=== PATIENT | male | born 1950 | race Two or more races ===

== ENCOUNTER 2019-03-04 20:06 | Emergency (ER) | payer MEDICARE, OTHER ==
[~2019-03-04] VITALS: Ht 170.2 cm; Wt 96.6 kg
[2019-03-04 21:11] LABS: BASOPHILS % (AUTO) 0.6 % (0.0-2.0); EOSINOPHILS % (AUTO) 1.4 % (0.0-6.0); HEMATOCRIT 38 % (39-51); HEMOGLOBIN 12.6 g/dL (13.5-17.5); LYMPHOCYTES # (AUTO) 1.9 /CMM (0.8-4.8); LYMPHOCYTES % (AUTO) 30.6 % (20.0-44.0); MEAN CORPUSCULAR HGB CONC 33 g/dl (31.0-36.0); MEAN CORPUSCULAR VOLUME 93 fL (80-96); MONOCYTES # (AUTO) 0.8 /CMM (0.1-1.30); MONOCYTES % (AUTO) 12.8 % (2.0-12.0); NEUTROPHILS # (AUTO) 3.3 /CMM (1.8-8.9); NEUTROPHILS % (AUTO) 54.6 % (43.0-81.0); PLATELET COUNT (AUTO) 275 /CMM (150-450); WHITE BLOOD COUNT (AUTO) 6.1 K/uL (4.3-11.0)
[2019-03-04 21:20] LABS: CARBON DIOXIDE 30 mmol/L (21-32); CHLORIDE 103 mmol/L (98-107); CREATININE 0.9 mg/dL (0.6-1.3); GLUCOSE 89 mg/dL (74-106); POTASSIUM 3.7 mmol/L (3.5-5.1); SODIUM SERUM 139 mmol/L (136-145); UREA NITROGEN, BLOOD 12 mg/dL (7-18)
[2019-03-04 21:25] LABS: ALANINE AMINOTRANSFERASE 36 U/L (12-78); ALBUMIN 3.5 g/dL (3.4-5.0); ALCOHOL, BLOOD < 3 mg/dL (0-0); ALKALINE PHOSPHATASE 106 U/L (46-116); ASPARTATE AMINOTRANSFERASE 21 U/L (15-37); BILIRUBIN,DIRECT 0.1 mg/dL (0.0-0.2); BILIRUBIN,TOTAL 0.4 mg/dL (0.2-1.0); TOTAL PROTEIN, SERUM 6.8 g/dL (6.4-8.2)
[2019-03-04 21:26] LABS: SALICYLATE 0.9 mg/dL (2.8-20.0)
[2019-03-04 21:27] LABS: ACETAMINOPHEN < 2 ug/ml (10-30)
[2019-03-04 22:02] LABS: APPEARANCE,URINE CLEAR (CLEAR); BILIRUBIN,URINE NEGATIVE (NEGATIVE); BLOOD, URINE NEGATIVE Ery/uL (NEGATIVE); KETONES,URINE NEGATIVE (NEGATIVE); LEUKOCYTE ESTERASE ,URINE NEGATIVE (NEGATIVE); NITRITE, URINE NEGATIVE (NEGATIVE); PROTEIN,URINE NEGATIVE (NEGATIVE); UGLUCOSE NEGATIVE (NEGATIVE); UROBILINOGEN,URINE 0.2 EU/dL (0.2)
[2019-03-04 22:03] LABS: COLOR,URINE STRAW (YELLOW)
--- NOTE | 2019-03-04 23:46 | NUR ---
CALLED TRANSPORTATION ENGINEERING TECHNICIAN, VOICEBOX IS FULL. WASNT ABLE TO LEAVE A MESSAGE.
--- NOTE | 2019-03-05 00:15 | NUR ---
CALLED JUAN FOR THE SECOND TIME, UNABLE TO LEAVE A VOICEMAIL.
--- NOTE | 2019-03-05 00:24 | NUR ---
JUAN MATERIAL REQUIREMENTS WORKER CALLED BACK, HE WILL BE HERE SHORTLY.
--- NOTE | 2019-03-05 01:11 | NUR ---
PT LYING DOWN COMFORTABLE, NO AGITATION. NO RESPIRATORY DISTRESS.
--- NOTE | 2019-03-05 03:12 | NUR ---
PT REFUSING V/S. PER PT HE WANTS TO SLEEP. NO RESPIRATORY DISTRESS NOTED. PT SLEEPING COMFORTABLE.
--- NOTE | 2019-03-05 03:21 | NUR ---
CALLED [facility] FOR TRANSPORT ETA OF [phone] WAS GIVEN. TRIP#[id number]
--- NOTE | 2019-03-05 03:22 | NUR ---
PT GOING TO [facility], ADMITTING MD: DR LOPEZ. NUMBER FOR REPORT: [phone] EXT [id number]
--- NOTE | 2019-03-05 04:02 | NUR ---
BO CALLED BACK WITH AN UPDATED ETA. ETA 0430.
--- NOTE | 2019-03-05 04:32 | NUR ---
REPORT GIVEN TO SREE PT D/C STABLE VIA AMBULANZ.
[2019-03-05 04:37] VITALS: BP 138/84
== END 2019-03-05 04:38 ==
LOC: ER 20:10
DX: F32.9 Major depressive disorder, single episode, unspecified (principal); R45.851 Suicidal ideations; I10 Essential (primary) hypertension; E11.9 Type 2 diabetes mellitus without complications; F41.9 Anxiety disorder, unspecified; F43.10 Post-traumatic stress disorder, unspecified
CPT/HCPCS: 36415; 80048; 80076; 80305; 80307; 80329; 81001; 85025; 99285; G0480; 81000-TC

== ENCOUNTER 2020-02-24 23:13 | Emergency (ER) | payer MEDICARE, OTHER ==
[~2020-02-24] VITALS: Ht 170.2 cm; Wt 97.5 kg
--- NOTE | 2020-02-25 00:21 | NUR ---
BIBSELF C/O SUICIDAL IDEATION WITH PLAN TO RUN INTO TRAFFIC. PT DENIES HI, HALLUCINATIONS AT THIS TIME. PT AAOX4. AMBULATORY WITH STEADY GAIT. RESPIRATIONS EVEN AND UNLABORED. SKIN INTACT. CALM AND COOPERATIVE. NO ACUTE DISTRESS NOTED AT THIS TIME. PT PLACED IN GOWN, BELONGINGS COLLECTED AND PLACED IN PATIENT LOCKER. WILL CONTINUE TO MONITOR. SECURITY AT BEDSIDE FOR WANDING
[2020-02-25 00:25] LABS: BASOPHILS % (AUTO) 0.6 % (0.0-2.0); EOSINOPHILS % (AUTO) 0.8 % (0.0-6.0); HEMATOCRIT 34 % (39-51); HEMOGLOBIN 11.3 g/dL (13.5-17.5); LYMPHOCYTES # (AUTO) 1.8 /CMM (0.8-4.8); LYMPHOCYTES % (AUTO) 25.3 % (20.0-44.0); MEAN CORPUSCULAR HGB CONC 33 g/dl (31.0-36.0); MEAN CORPUSCULAR VOLUME 93 fL (80-96); MONOCYTES # (AUTO) 1.1 /CMM (0.1-1.30); MONOCYTES % (AUTO) 15.5 % (2.0-12.0); NEUTROPHILS # (AUTO) 4.2 /CMM (1.8-8.9); NEUTROPHILS % (AUTO) 57.8 % (43.0-81.0); PLATELET COUNT (AUTO) 281 /CMM (150-450); RED BLOOD CELL COUNT(AUTO) 3.69 MIL/uL (4.5-6.0); WHITE BLOOD COUNT (AUTO) 7.2 K/uL (4.3-11.0)
[2020-02-25 00:54] LABS: CARBON DIOXIDE 27 mmol/L (21-32); CHLORIDE 104 mmol/L (98-107); CREATININE 1.2 mg/dL (0.6-1.3); GLUCOSE 100 mg/dL (74-106); POTASSIUM 3.7 mmol/L (3.5-5.1); SODIUM SERUM 140 mmol/L (136-145); UREA NITROGEN, BLOOD 27 mg/dL (7-18)
[2020-02-25 01:13] LABS: ALANINE AMINOTRANSFERASE 23 U/L (12-78); ALBUMIN 3.5 g/dL (3.4-5.0); ALCOHOL, BLOOD < 3 mg/dL (0-0); ALKALINE PHOSPHATASE 118 U/L (46-116); ASPARTATE AMINOTRANSFERASE 21 U/L (15-37); BILIRUBIN,DIRECT 0.1 mg/dL (0.0-0.2); BILIRUBIN,TOTAL 0.3 mg/dL (0.2-1.0); TOTAL PROTEIN, SERUM 7.9 g/dL (6.4-8.2)
[2020-02-25 01:14] LABS: ACETAMINOPHEN 0 ug/ml (10-30); SALICYLATE 1.2 mg/dL (2.8-20.0)
[2020-02-25 01:15] LABS: APPEARANCE,URINE Clear (CLEAR); BILIRUBIN,URINE Negative (NEGATIVE); BLOOD, URINE Negative Ery/uL (NEGATIVE); COLOR,URINE Yellow (YELLOW); KETONES,URINE Negative (NEGATIVE); LEUKOCYTE ESTERASE ,URINE Moderate (NEGATIVE); NITRITE, URINE Negative (NEGATIVE); PROTEIN,URINE Negative (NEGATIVE); UGLUCOSE Negative (NEGATIVE); UROBILINOGEN,URINE 0.2 EU/dL (0.2)
[2020-02-25 01:43] LABS: BACTERIA,URINE Moderate /HPF (None Seen); RBC,URINE 0-2 /HPF (0-2); SQUAMOUS EPITHELIAL CELL,UR Few /HPF (None Seen); WBC,URINE 21-50 /HPF (0-3)
[2020-02-25 01:49] LABS: LYMPHOCYTES % (MANUAL) 23 % (16-48); MONOCYTES % (MANUAL) 15 % (0-11.0); NEUTROPHILS % (MANUAL) 62 (42-76)
[2020-02-25] MEDS ORDERED: CIPROFLOXACIN HCL 500 MG TABLET ONE (02:12)
[2020-02-25] MEDS: CIPROFLOXACIN HCL 500 MG TABLET PO ONE (02:21)
--- NOTE | 2020-02-25 02:21 | NUR ---
PT VERBALIZED THAT HE FEELS SHAKING AND DIAPHORETIC. UPON ASSESSING PT IS DIAPHORETIC W/ FSBS @ 62. PROVIDED WITH SANDWHICH AND JUICE. IS AWARE
--- NOTE | 2020-02-25 03:47 | NUR ---
PATIENT IS AWAKE. PATIENT ASKED, "WHAT TIME IS IT?". PATIENT ATTEMPTS TO RETURN TO SLEEP. BREATHING EVENLY AND UNLABORED ON ROOM AIR. CONNECTED TO MONITOR.
--- NOTE | 2020-02-25 06:09 | NUR ---
pt in bed sleeping. nad noted
--- NOTE | 2020-02-25 06:21 | NUR ---
Mary called for transport. ETA [id number].
--- NOTE | 2020-02-25 06:32 | NUR ---
Pt accepted to [facility] by Dr Myers. # for report [phone].
--- NOTE | 2020-02-25 07:05 | NUR ---
REPORT GIVEN TO EVELINE GUNN FROM [facility]
[2020-02-25 07:54] VITALS: BP 134/81
--- NOTE | 2020-02-25 07:56 | NUR ---
patient picked up by private ambulance, in no distress, denies any pain or discomfort at this time, [facility],
== END 2020-02-25 07:56 ==
LOC: ER 23:19
DX: R45.851 Suicidal ideations (principal); F32.9 Major depressive disorder, single episode, unspecified; N39.0 Urinary tract infection, site not specified; E11.649 Type 2 diabetes mellitus with hypoglycemia without coma; F41.9 Anxiety disorder, unspecified
CPT/HCPCS: 36415; 80048; 80076; 80305; 80307; 80329; 81001; 82962 ×2; 85025; 99285; G0480; 81000-TC; 87086-TC

== ENCOUNTER 2020-03-05 16:12 | Emergency (ER) | payer MEDICARE, OTHER ==
[~2020-03-05] VITALS: Ht 170.2 cm; Wt 85.3 kg
--- NOTE | 2020-03-05 16:41 | NUR ---
BIBS TO ER BED 14. AAOX4. NOT IN RESP DISTRESS, BREATHING EVEN AND UNLABORED. AMBULATORY. CAME IN FOR SUICIDAL IDEATION WITH PLAN TO RUN INTO FREEWAY. DENIES HI. DENIES VISUAL AND AUDITORY HALLUCINATION. PT STATES THAT HE IS FEELING DEPRESSED AND ANXIOUS BECAUSE HIS GUITAR WAS STOLEN. PT IS GOWNED AND BELONGINGS PLACED IN LOCKER LOCATED IN THE UTILITY ROOM. 1:1 SITTER AT BEDSIDE. WAS AT BEDSIDE FOR EVAL.
[2020-03-05 16:55] LABS: BASOPHILS # (AUTO) 0.1 /CMM (0.0-0.2); EOSINOPHILS % (AUTO) 1.8 % (0.0-6.0); HEMATOCRIT 35 % (39-51); HEMOGLOBIN 11.5 g/dL (13.5-17.5); LYMPHOCYTES # (AUTO) 1.5 /CMM (0.8-4.8); LYMPHOCYTES % (AUTO) 26.2 % (20.0-44.0); MEAN CORPUSCULAR HGB CONC 33 g/dl (31.0-36.0); MEAN CORPUSCULAR VOLUME 92 fL (80-96); MONOCYTES # (AUTO) 0.6 /CMM (0.1-1.30); MONOCYTES % (AUTO) 10.1 % (2.0-12.0); NEUTROPHILS # (AUTO) 3.6 /CMM (1.8-8.9); NEUTROPHILS % (AUTO) 60.9 % (43.0-81.0); PLATELET COUNT (AUTO) 271 /CMM (150-450); RED BLOOD CELL COUNT(AUTO) 3.76 MIL/uL (4.5-6.0); WHITE BLOOD COUNT (AUTO) 5.9 K/uL (4.3-11.0)
[2020-03-05 17:02] LABS: CALCIUM, SERUM 9.5 mg/dL (8.5-10.1); CARBON DIOXIDE 28 mmol/L (21-32); CHLORIDE 96 mmol/L (98-107); CREATININE 1.1 mg/dL (0.6-1.3); GLUCOSE 63 mg/dL (74-106); SODIUM SERUM 130 mmol/L (136-145); UREA NITROGEN, BLOOD 29 mg/dL (7-18)
[2020-03-05 17:03] LABS: BILIRUBIN,URINE Negative (NEGATIVE); BLOOD, URINE Negative Ery/uL (NEGATIVE); KETONES,URINE Negative (NEGATIVE); LEUKOCYTE ESTERASE ,URINE Small (NEGATIVE); NITRITE, URINE Negative (NEGATIVE); PH,URINE 6.5 (5.0-8.0); PROTEIN,URINE Negative (NEGATIVE); UGLUCOSE Negative (NEGATIVE); UROBILINOGEN,URINE 0.2 EU/dL (0.2)
[2020-03-05 17:07] LABS: ALANINE AMINOTRANSFERASE 21 U/L (12-78); ALBUMIN 3.8 g/dL (3.4-5.0); ALCOHOL, BLOOD < 3 mg/dL (0-0); ALKALINE PHOSPHATASE 107 U/L (46-116); ASPARTATE AMINOTRANSFERASE 14 U/L (15-37); BILIRUBIN,DIRECT 0.1 mg/dL (0.0-0.2); BILIRUBIN,TOTAL 0.3 mg/dL (0.2-1.0); TOTAL PROTEIN, SERUM 8.3 g/dL (6.4-8.2)
[2020-03-05 17:08] LABS: SALICYLATE < 2.8 mg/dL (2.8-20.0)
[2020-03-05 17:10] LABS: APPEARANCE,URINE SLIGHTLY HAZY (CLEAR); COLOR,URINE Light yellow (YELLOW); RBC,URINE 0-2 /HPF (0-2); SQUAMOUS EPITHELIAL CELL,UR Rare /HPF (None Seen)
[2020-03-05 17:11] LABS: BACTERIA,URINE Few /HPF (None Seen)
--- NOTE | 2020-03-05 18:25 | NUR ---
SPOKE TO PIYUSH AT [facility] AND PT IS CURRENTLY SCHEDULED TO GO TO [facility] BUT [facility] IS CURRENTLY REVIEWING CLINICALS BEFORE ACCEPTING. NO FUTHER UPDATE. WILL CALL BACK WITH UPDATE INFO.
--- NOTE | 2020-03-06 00:57 | NUR ---
PT IN BED SLLEPING COMFORTABLE. NAD NOTED. AWAITING FOR BED FROM [facility].
--- NOTE | 2020-03-06 04:28 | NUR ---
SPOKE TO [facility] INTAKE. STATED THEY SENT THE INFO OVER TO [place] AND WILL FOLLOW UP WITH THEM. AWAITING CALL BACK FROM [facility]
--- NOTE | 2020-03-06 07:15 | NUR ---
PT AWAKE ON BED AAOX4, NOT IN RESPIRATORY DISTRESS, V/S STABLE, KEPT RESTED AND COMFORTABLE, WILL CONTINUE TO MONITOR.
--- NOTE | 2020-03-06 10:46 | NUR ---
HEBERT was informed by ED AKHIL Hdz to follow up with Shashank at [facility] regarding placement. HEBERT contacted Shashank regarding pt awaiting a bed at [facility] since 4AM this morning. Shashank informed KETTLE OPERATOR, pt was recently discharged from [facility] less than 24 hours ago. Pt has been referred to [facility] for admission. Per Shashank, he has reached out to involved parties at [facility] and pt will be considered for [facility]. HEBERT updated AKHIL Hdz in ED.
--- NOTE | 2020-03-06 12:40 | NUR ---
WELDING PANTOGRAPH OPERATOR received a callback from Nikki at [facility]. Pt is accepted at [place]. Accepting Dr. Myers/Haley. Report to [phone]. ED updated with aforementioned information.
[2020-03-06 12:53] VITALS: BP 144/83
--- NOTE | 2020-03-06 12:59 | NUR ---
CALLED [facility] ETA IS 30 MINS PER SCAR
--- NOTE | 2020-03-06 13:00 | NUR ---
REPORT GIVEN TO EVELINE BLUE OF [facility].
--- NOTE | 2020-03-06 13:55 | NUR ---
REPORT GIVEN TO EMS FOR PT TRANSFER TO [facility].
== END 2020-03-06 14:14 | disposition short-term general hospital (02) ==
LOC: ER 16:17
DX: F32.9 Major depressive disorder, single episode, unspecified (principal); R45.851 Suicidal ideations; E11.9 Type 2 diabetes mellitus without complications; F41.9 Anxiety disorder, unspecified; Z59.0 Homelessness
CPT/HCPCS: 36415; 80048; 80076; 80305; 80307; 80329; 81001; 85025; 87086; 99285; G0480; 81000-TC